=== PATIENT | male | born 1955 | race Caucasian/White ===

== ENCOUNTER → 2018-08-25 | Outpatient (CLI) | payer BC ==
[~2018-08-25] MED LIST: GADOBENATE DIMEGLUMINE 0 ML IV ONE
[2018-08-25 12:01] LABS: CREATININE, SERUM 1.26 mg/dL (0.72-1.25)
== END ==
LOC: MRI 10:56
PROVIDERS: ATTEND Surgery
DX: K76.9 Liver disease, unspecified (principal); K76.89 Other specified diseases of liver
CPT/HCPCS: 36415; 82565; 84520